=== PATIENT | male | born 1985 | race African-American/Black ===

== ENCOUNTER 2017-07-27 09:58 | Emergency (ER) | payer OTHER ==
[~2017-07-27] VITALS: Ht 177.8 cm; Wt 87.2 kg
[2017-07-27 10:07] VITALS: BP 137/73
== END 2017-07-27 11:36 | disposition home or self-care (01) ==
LOC: EMS 10:00
DX: S39.91XA Unspecified injury of abdomen, initial encounter (principal); W50.0XXA Accidental hit or strike by another person, initial encounter; Y93.F9 Activity, other caregiving; Y92.89 Other specified places as the place of occurrence of the external cause; Y99.8 Other external cause status
CPT/HCPCS: 99281; 99283